=== PATIENT | female | born 1990 | race Asian ===

== ENCOUNTER 2020-08-31 11:27 | Emergency (ER) | payer OTHER, MEDICAID ==
[~2020-08-31] VITALS: Ht 152.4 cm; Wt 67.5 kg
--- NOTE | 2020-08-31 12:32 | NUR ---
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
[2020-08-31 12:53] VITALS: BP 98/62
[2020-08-31] MEDS ORDERED: DIAZEPAM 5 MG TABLET ONE (12:59)
[2020-08-31] MEDS ORDERED: NAPROXEN 500 MG TABLET ONE (12:59)
[2020-08-31] MEDS ORDERED: NAPROXEN 500 MG TABLET PO ONE (13:00)
[2020-08-31] MEDS ORDERED: DIAZEPAM 5 MG TABLET PO ONE (13:00)
[2020-08-31] MEDS ORDERED: KETOROLAC 30 MG/1 ML ONE (13:03)
[2020-08-31] MEDS ORDERED: KETOROLAC 30 MG/1 ML IM ONE (13:30)
--- NOTE | 2020-08-31 13:43 | NUR ---
REPORT GIVEN TO SOLOMON RYAN
== END 2020-08-31 14:30 | disposition home or self-care (01) ==
LOC: ED 14:25
DX: S39.012A Strain of muscle, fascia and tendon of lower back, initial encounter (principal); M25.552 Pain in left hip; F17.210 Nicotine dependence, cigarettes, uncomplicated; X58.XXXA Exposure to other specified factors, initial encounter; Y93.89 Activity, other specified; Y92.89 Other specified places as the place of occurrence of the external cause; Y99.8 Other external cause status
CPT/HCPCS: 72110; 96372; 99283; J1885